=== PATIENT | male | born 1995 | race Two or more races ===

== ENCOUNTER 2019-07-27 08:59 | Emergency (ER) | payer SELFPAY ==
[~2019-07-27] VITALS: Ht 172.7 cm; Wt 66.0 kg
[2019-07-27 09:01] VITALS: BP 105/64
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
--- NOTE | 2019-07-27 09:51 | NUR ---
REPORT RECEIVED FROM WILLIAM Polanco. [facility]
--- NOTE | 2019-07-27 11:12 | NUR ---
PT LEFT HIS HAT IN THE ROOM ON THE FLOOR ALONG WITH DC PAPERS FROM [place] ON THE BED. ITEMS TAKEN TO SECURITY.
== END 2019-07-27 11:08 | disposition left against medical advice (07) ==
LOC: ED 11:02
DX: F11.23 Opioid dependence with withdrawal (principal)
CPT/HCPCS: 99283